=== PATIENT | female | born 1990 | race Caucasian/White ===

== ENCOUNTER 2016-11-24 16:30 | Emergency (ER) | payer OTHER ==
[~2016-11-24] VITALS: Ht 167.6 cm; Wt 95.7 kg
[~2016-11-24 16:30] MED LIST: Z.0.NO CURRENT MEDS
[2016-11-24] MEDS ORDERED: PREN1TAB45 PO (17:16)
[2016-11-24 17:30] VITALS: BP 129/85; PULSE 87
[2016-11-24 17:42] LABS: HEMATOCRIT 35.6 % (35.0-46.0); MEAN CELL VOLUME 80.7 FL (80.0-100.0); MEAN CORPUSCULAR HEMOGLOBIN 27.2 PG (27.0-34.0); MEAN CORPUSCULAR HGB CONC 33.7 % (32.0-36.0); PLATELET COUNT 242 TH/MM3 (150-450); RED BLOOD COUNT 4.42 MIL/MM3 (4.00-5.30); REVIEW FLAG FINAL; WHITE BLOOD COUNT 12.7 TH/MM3 (4.0-11.0)
[2016-11-24 17:45] VITALS: BP 132/79; PULSE 88
[2016-11-24 17:57] LABS: ALT (GPT) 14 U/L (10-53); ANION GAP 9 MEQ/L (5-15); AST (GOT) 12 U/L (15-37); BICARBONATE 21.3 MEQ/L (21.0-32.0); BLOOD UREA NITROGEN 7 MG/DL (7-18); CHLORIDE 108 MEQ/L (98-107); GLOMERULAR FILTRATION RATE 129 ML/MIN (>89); POTASSIUM 3.7 MEQ/L (3.5-5.1); SODIUM (NA) 138 MEQ/L (136-145); URIC ACID 3.5 MG/DL (2.6-6.0)
--- NOTE | 2016-11-24 17:57 | PD ---
HPI Chief Complaint sent from OB office for elevated blood pressure, rule out rupture Date Seen: Nov 24, 2016 Time Seen: 17:40 Travel History International Travel<30 Days: No Contact w/Intl Traveler<30Days: No Known Affected Area: No History of Present Illness HPI Pt is a 26 y/o G1 with IUP at 38.3 wks who was sent from Dr. Gray's office for evaluation of elevated blood pressure and r/o rupture. Pt states blood pressure in office today was approximately 150/90. She reports h/o borderline high blood pressure in the past but not diagnosed with hypertension or started on medication. Pt denies headache, vision change (except during hot shower), RUQ pain. She does report swelling of feet and also notes some finger swelling when she wakes in the morning. She reports some mild cramping, no RUC. denies vag bleeding. +FM She also had some fluid leakage after cervical exam in the office, and Dr. Gray requested amnisure (result negative). Weeks Gestation: 38 Para: 0 : 1 History Past Medical History Medical History: Denies Significant Hx Obstetric History Obstetric History G1 Past Surgical History Narrative Surgical appendectomy, tonsillectomy, surgery on finger Family History Family History: Negative Social History Alcohol Use: No Tobacco Use: No Substance Abuse: No Allergies-Medications (Allergen,Severity, Reaction): Coded Allergies: No Known Allergies (Unverified , 11/19/12) Home Meds Reported Medications Vit W/ Iron Carbonyl- (Pnv Tabs 29-1 29-1 mg) 29 Mg Iron-1 Mg Tab, 1 TAB PO DAILY 11/24/16 Discontinued Reported Medications Miscellaneous (No Current Meds) Misc 11/19/12 Review of Systems Eyes: No: Diploplia, Blurred Vision, Visual changes, Pain, Photophobia, Other HENT: No: Headaches, Vertigo, Dental Difficulties, Lightheadedness, Other Cardiovascular: No: Irregular Rhythm, Chest Pain or Discomfort, Palpitations, Tachycardia, Syncope, Varicosities, Edema, Cyanosis, Other Respiratory: No: Cough, Short of Breath, Wheezing, Other Gastrointestinal: No: Nausea, Vomiting, Diarrhea, Abdominal Pain, Hematemesis, Hematochezia, Constipation, Changes in Bowel Habits, Indigestion, Loss of Appetite, Other Genitourinary: No: Urgency, Frequency, Dysuria, Nocturia, Hematuria, Decreased Urinary Output, Oliguria, Hesitancy, Dribbling, Incontinence, Pelvic Pain, Dyspareunia, Discharge, Menorrhagia, Vaginal Bleeding, Other Musculoskeletal: Edema Skin: No Rash, No Itching, No Dryness, No Lumps, No Change in Pigmentation, No Change in Nails, No Alopecia, No Lesions, No Breast Lumps, No Breast Tenderness , No Breast Swelling, No Other Neurologic: No: Weakness, Dizziness, Syncope, Focal Abnormalities, Coordination Problem, Headache, Slurred Speech, Seizures, Other Psychiatric: No: Anxiety, Depression, Suicidal Ideations, Disorder of Thought, Mood Disorder, Substance Abuse, Homicidal Ideation, Other Endocrine: No: Heat Intolerance, Cold Intolerance, Polydipsia, Polyuria, Other Hematologic/Lymphatic: No Easy Bruising, No Lymph Node Enlargement, No Other Physical Exam 152/96, 140/87, 129/77, 129/85, 132/79, 129/74, 130/82, 130/78 Narrative GENERAL: Well-nourished, well-developed patient. SKIN: Warm and dry. HEAD: Normocephalic and atraumatic. EYES: No scleral icterus. No injection or drainage. ENT: No nasal drainage noted. Mucous membranes pink. Airway patent. NECK: Supple, trachea midline. No JVD. CARDIOVASCULAR: Regular rate and rhythm without murmurs, gallops, or rubs. RESPIRATORY: Breath sounds equal bilaterally. No accessory muscle use. ABDOMEN/GI: Abdomen soft, non-tender, bowel sounds present, no rebound, no guarding Gravid GENITOURINARY: Uterine Contractions: [irregular] FHT's: Category: 1 Baseline: 150 Reactive: yes Variability: mod Decels: no EXTREMITIES: 1-2+ pedal edema. BACK: Nontender without obvious deformity. No CVA tenderness. NEUROLOGICAL: Awake and alert. . Five out of 5 muscle strength in all muscle groups. Normal speech. Brisk patellar and biceps reflexes bilaterally; no ankle clonus Data Data Orders Orders Vital Signs (Adult) .ON ADMISSION (11/24/16 17:20) ^ Labor Status (11/24/16 17:20) Urinalysis - C+S If Indicated (11/24/16 17:20) ^ Non Stress Test (11/24/16 17:20) Cbc No Diff, Includes Plts (11/24/16 17:20) Comprehensive Metabolic Panel (11/24/16 17:20) Uric Acid (11/24/16 17:20) Us Ob Bpp Wo Nst (11/24/16 17:20) Labs Laboratory Tests Test 11/24/16 16:57 White Blood Count 12.7 TH/MM3 Red Blood Count 4.42 MIL/MM3 Hemoglobin 12.0 GM/DL Hematocrit 35.6 % Mean Corpuscular Volume 80.7 FL Mean Corpuscular Hemoglobin 27.2 PG Mean Corpuscular Hemoglobin Concent 33.7 % Red Cell Distribution Width 13.0 % Platelet Count 242 TH/MM3 Mean Platelet Volume 9.0 FL Urine Color LIGHT-YELLOW Urine Turbidity HAZY Urine pH 5.5 Urine Specific [place] 1.003 Urine Protein NEG mg/dL Urine Glucose (UA) NEG mg/dL Urine Ketones NEG mg/dL Urine Occult Blood NEG Urine Nitrite NEG Urine Bilirubin NEG Urine Urobilinogen LESS THAN 2.0 MG/DL Urine Leukocyte Esterase SMALL Urine RBC 1 /hpf Urine WBC 1 /hpf Urine Squamous Epithelial Cells 1 /hpf Urine Bacteria OCC /hpf Microscopic Urinalysis Comment CULT NOT INDICATED Blood Urea Nitrogen 7 MG/DL Creatinine 0.56 MG/DL Random Glucose 83 MG/DL Total Protein 6.6 GM/DL Albumin 2.6 GM/DL Calcium Level 8.4 MG/DL Uric Acid 3.5 MG/DL Alkaline Phosphatase 139 U/L Aspartate Amino Transf (AST/SGOT) 12 U/L Alanine Aminotransferase (ALT/SGPT) 14 U/L Total Bilirubin 0.3 MG/DL Sodium Level 138 MEQ/L Potassium Level 3.7 MEQ/L Chloride Level 108 MEQ/L Carbon Dioxide Level 21.3 MEQ/L Anion Gap 9 MEQ/L Estimat Glomerular Filtration Rate 129 ML/MIN Laboratory Tests Test 11/24/16 16:57 White Blood Count 12.7 Red Blood Count 4.42 Hemoglobin 12.0 Hematocrit 35.6 Mean Corpuscular Volume 80.7 Mean Corpuscular Hemoglobin 27.2 Mean Corpuscular Hemoglobin Concent 33.7 Red Cell Distribution Width 13.0 Platelet Count 242 Mean Platelet Volume 9.0 MDM Medical Record Reviewed: Yes Narrative Course / MDM 26 y/o G1 with IUP at 38.3 wks 1. elevated blood pressure --check serial bps (initial bp elevated, then normalized) --[facility] labs (wnl) --BPP ordered (1010 BPP, JAVY 20) --cat 1 tracing 2. r/o SROM --amnisure neg spoke with Dr. Gray and relayed lab info, vital signs, bpp results. Dr. Gray recommends that patient f/u in office at 1:30 on Monday. s/sx preeclampsia and labor reviewed with patient before discharge. kick counts discussed all questions answered. Plan d/c home f/u with Dr. Gray Monday at 1:30 Diagnosis Diagnosis: Primary Impression: Gestational [-induced] hypertension without significant proteinuria, third trimester Additional Impression: 38 weeks gestation of Disposition: DISCHARGE HOME Condition: Stable Patient Instructions: General Instructions, Early Labor Signs (ED), Preeclampsia (ED), Movement (ED) Fito Broderick MD Nov 24, 2016 17:57
[2016-11-24 17:59] LABS: ALKALINE PHOSPHATASE 139 U/L (45-117); TOTAL BILIRUBIN ADULT 0.3 MG/DL (0.2-1.0)
[2016-11-24 18:04] VITALS: BP 129/74; PULSE 88
[2016-11-24 18:12] LABS: BACTERIA, URINE OCC /hpf; BLOOD, URINE NEG (NEG); COMMENT (UR) CULT NOT INDICATED; CULTURE IF INDICATED CULT NOT INDICATED; GLUCOSE,URINE NEG (NEG); KETONE, URINE NEG (NEG); NITRITE,URINE NEG (NEG); PH, URINE 5.5 (5.0-8.5); SQUAMOUS EPITHELIAL CELL URINE 1 /hpf (0-5); URINE COLOR LIGHT-YELLOW (YELLW/STRAW)
[2016-11-24 18:30] VITALS: BP 130/78; PULSE 84
== END 2016-11-24 19:08 | disposition home or self-care (01) ==
LOC: HOBED 16:30
DX: O13.3 Gestational [pregnancy-induced] hypertension without significant proteinuria, third trimester (principal); Z3A.38 38 weeks gestation of pregnancy
CPT/HCPCS: 36415; 59025; 76816; 76819; 80053; 81001; 84112; 84550; 85027

== ENCOUNTER 2016-11-29 17:45 | Inpatient (IN) | payer OTHER ==
[~2016-11-29] VITALS: Ht 167.6 cm; Wt 92.0 kg
[~2016-11-29 17:45] MED LIST changes: +PREN1TAB45 PO; -Z.0.NO CURRENT MEDS
[2016-11-29 18:23] VITALS: BP 139/82; PULSE 91; RESP 18; TEMP 98.4
[2016-11-29 18:42] LABS: BLOOD, URINE NEG (NEG); COMMENT (UR) CULT NOT INDICATED; CULTURE IF INDICATED CULT NOT INDICATED; GLUCOSE,URINE NEG (NEG); KETONE, URINE NEG (NEG); MUCUS URINE FEW /lpf (OCC); NITRITE,URINE NEG (NEG); PH, URINE 5.5 (5.0-8.5); SQUAMOUS EPITHELIAL CELL URINE 7 /hpf (0-5); URINE COLOR YELLOW (YELLW/STRAW)
[2016-11-29 18:44] LABS: AUTOMATED NEUTROPHIL # 7.7 TH/MM3 (1.8-7.7); BASOPHIL % 0.4 % (0.0-2.0); EOSINOPHIL # 0.1 TH/MM3 (0-0.4); EOSINOPHIL % 1.1 % (0.0-4.0); HEMATOCRIT 35.5 % (35.0-46.0); HEMO FLAGS DIFF FINAL; LYMPH % 21.8 % (9.0-44.0); LYMPHOCYTE # 2.4 TH/MM3 (1.0-4.8); MEAN CELL VOLUME 79.9 FL (80.0-100.0); MEAN CORPUSCULAR HEMOGLOBIN 26.9 PG (27.0-34.0); MEAN CORPUSCULAR HGB CONC 33.7 % (32.0-36.0); MONO % 6.8 % (0.0-8.0); NEUT % 69.9 % (16.0-70.0); PLATELET COUNT 246 TH/MM3 (150-450); RED BLOOD COUNT 4.44 MIL/MM3 (4.00-5.30); RED CELL DISTRIBUTION WIDTH 13.6 % (11.6-17.2)
[2016-11-29] MEDS ORDERED: CITRIC ACID-SODIUM CITRATE LIQ 30 ML UDC PO SCH (18:45)
[2016-11-29] MEDS ORDERED: MINERAL OIL 10 ML VIAL TOPICAL PRN (18:45)
[2016-11-29] MEDS ORDERED: ONDANSETRON HCL 4 MG/2 ML VIAL IV PUSH PRN (18:45)
[2016-11-29] MEDS ORDERED: ZOLPIDEM TARTRATE 5 MG TAB PO PRN (18:45)
[2016-11-29] MEDS ORDERED: LIDOCAINE HCL 1% 50 ML VIAL INFIL PRN (18:45)
[2016-11-29] MEDS ORDERED: NS 500 ML BOLUS IV PRN (18:45)
[2016-11-29] MEDS ORDERED: DINOPROSTONE 10 MG INSERT - REMOVE AT 0600 VAGINAL ONE (18:45)
[2016-11-29] MEDS ORDERED: NS 1000 ML IV PRN (18:45)
[2016-11-29] MEDS ORDERED: LACTATED RINGER'S 1000 ML BOLUS IV PRN (18:45)
[2016-11-29] MEDS ORDERED: OXYTOCIN 30 UNITS 500ML PREMIX IV ONE (18:45)
[2016-11-29] MEDS ORDERED: LIDOCAINE HCL 1% 50 ML VIAL I-DERMAL PRN (18:45)
[2016-11-29] MEDS: LACTATED RINGER'S 1000 ML IV SCH (18:54)
[2016-11-29 19:25] VITALS: RESP 18; TEMP 98
[2016-11-29 19:30] VITALS: BP 133/91; PULSE 86
[2016-11-29] MEDS ORDERED: CALCIUM CARBONATE 500 MG CHEWABLE TAB PO PRN (20:00)
[2016-11-29 20:23] LABS: ANION GAP 9 MEQ/L (5-15); AST (GOT) 19 U/L (15-37); BICARBONATE 21.1 MEQ/L (21.0-32.0); BLOOD UREA NITROGEN 9 MG/DL (7-18); CHLORIDE 108 MEQ/L (98-107); GLOMERULAR FILTRATION RATE 115 ML/MIN (>89); POTASSIUM 3.7 MEQ/L (3.5-5.1); SODIUM (NA) 138 MEQ/L (136-145); URIC ACID 4.2 MG/DL (2.6-6.0)
[2016-11-29 20:24] LABS: ALT (GPT) 20 U/L (10-53)
[2016-11-29 20:27] LABS: ALKALINE PHOSPHATASE 147 U/L (45-117); TOTAL BILIRUBIN ADULT 0.3 MG/DL (0.2-1.0)
[2016-11-29 23:18] VITALS: BP 141/85; PULSE 71
[2016-11-29 23:19] VITALS: TEMP 97.6
[2016-11-29] MEDS: FAMOTIDINE 20 MG/2 ML VIAL IV SCH (23:35)
[2016-11-30] VITALS (123 sets, daily range): BP systolic 113–146; BP diastolic 62–87; PULSE 61–101; RESP 18–24; TEMP 97.6–99.5; O2SAT 93–100
[2016-11-30] MEDS: LACTATED RINGER'S 1000 ML IV SCH ×2 (02:45→15:46)
[2016-11-30] MEDS ORDERED: OXYTOCIN 30 UNITS-500ML PREMIX 500 ML ONE (06:44)
[2016-11-30] MEDS ORDERED: OXYTOCIN 30 UNITS/NS 500ML PREMIX IV SCH (08:00)
[2016-11-30] MEDS: FAMOTIDINE 20 MG/2 ML VIAL IV SCH ×2 (08:00→22:00)
--- NOTE | 2016-11-30 09:33 | PD.LABORPN ---
Subjective Subjective pt comfortable, denies fortune, ruq pain and visual changes Objective Vital Signs Vital Signs Date Time Temp Pulse Resp B/P (MAP) Pulse Ox O2 Delivery O2 Flow Rate FiO2 11/30/16 08:56 61 125/80 (95) 11/30/16 08:54 18 11/30/16 08:30 76 120/81 (94) 11/30/16 08:00 76 120/87 (98) 11/30/16 07:30 71 126/81 (96) 11/30/16 07:15 20 11/30/16 07:14 98.0 11/30/16 07:00 74 120/79 (93) 11/30/16 06:54 78 127/86 (100) 11/30/16 04:46 69 118/73 (88) 11/30/16 04:45 18 11/30/16 04:45 98.0 11/30/16 02:15 18 11/30/16 01:45 98.1 11/30/16 01:44 71 136/75 (95) 11/30/16 01:44 18 Objective Pelvic Exam: Cervix: [-] Dilatation: [-] Effacement: [-] Station: [-] Presentation: [-] Membranes: [intact or ruptured] Uterine Contractions: [-] FHT's: Category: [-] Baseline: [-] Reactive: [-] Variability: [-] Decels: [-] Weeks Gestation: 39 Gest Age Assessed Date: Nov 29, 2016 Gest Age Assessed Time: 17:30 Pt started active labor?: No Medical induction of labor?: Yes Medical induction start date: Nov 29, 2016 Medical induction start time: 17:30 Artificial rupture of membrane: Yes Artificial ROM date: Nov 30, 2016 Artifical ROM time: 09:00 Assessment/Plan Problem List: (1) Gestational hypertension ICD Codes: O13.9 - Gestational [-induced] hypertension without significant proteinuria, unspecified trimester Status: Acute Plan: s/p cervidil cont pit Yahaira Gray MD Nov 30, 2016 09:33
[2016-11-30] MEDS ORDERED: INFLUENZA VIRUS VACCINE (QUADRIVALENT) 0.5 ML SYR IM ONE (10:00)
[2016-11-30] MEDS ORDERED: fentaNYL 2MCG-BUPIV 0.125% INJ 100 ML ONE (13:28)
[2016-11-30] MEDS ORDERED: ePHEDrine/NS 25 MG/5 ML SYR IV PUSH PRN (15:30)
[2016-11-30] MEDS ORDERED: DO NOT ADMINISTER ANTICOAGULANTS PRN (15:30)
[2016-11-30] MEDS ORDERED: NO SYSTEM NARCOTICS PRN (15:30)
[2016-11-30] MEDS: fentaNYL 2MCG-BUPIV 0.125% 100 ML EPIDURAL SCH ×2 (15:48→22:10)
[2016-12-01] VITALS (26 sets, daily range): BP systolic 107–152; BP diastolic 56–96; PULSE 76–147; RESP 16–20; TEMP 97.4–98.6; O2SAT 97–100
[2016-12-01] MEDS ORDERED: LIDOCAINE HCL 1% 50 ML VIAL ONE (00:59)
[2016-12-01] MEDS ORDERED: SODIUM CHLORIDE 0.9% FLUSH 10 ML FLUSH IV FLUSH PRN (03:30)
[2016-12-01] MEDS ORDERED: ALUMINUM/MAGNESIUM/SIMETH 30 ML CUP PO PRN (03:30)
[2016-12-01] MEDS ORDERED: LIDOCAINE HCL 1% 20 ML VIAL INFIL ONE (03:30)
[2016-12-01] MEDS ORDERED: oxyCODONE/ACETAMINOPHEN 5 MG/325 MG TAB PO PRN ×2 (03:30)
[2016-12-01] MEDS ORDERED: ACETAMINOPHEN 325 MG TAB PO PRN (03:30)
[2016-12-01] MEDS ORDERED: BENZOCAINE 20% TOPICAL SPRAY 60 ML CAN TOPICAL PRN (03:30)
[2016-12-01] MEDS ORDERED: ONDANSETRON ODT 4 MG TAB PO PRN (03:30)
[2016-12-01] MEDS ORDERED: DOCUSATE SODIUM 50 MG/SENNA 8.6 MG TAB PO PRN (03:30)
[2016-12-01] MEDS ORDERED: ZOLPIDEM TARTRATE 5 MG TAB PO PRN (03:30)
[2016-12-01] MEDS ORDERED: OXYTOCIN 30 UNITS-500ML PREMIX 500 ML IV ONE (03:30)
[2016-12-01] MEDS ORDERED: OXYTOCIN 30 UNITS-500ML PREMIX 500 ML IV SCH (03:30)
--- NOTE | 2016-12-01 03:31 | PD.OB.DELI ---
Weeks gestation: 39 Gest age assessed date: Nov 29, 2016 Gest age assessed time: 17:30 Pt started active labor?: No Medical induction of labor?: Yes Medical induction start date: Nov 29, 2016 Medical induction start time: 17:30 Artificial rupture of membrane: Yes Artificial ROM date: Nov 30, 2016 Artifical ROM time: 09:00 Anesthesia: Epidural, Lidocaine local to perineum Episiotomy: None Vaginal Delivery: Normal Presentation: Occiput anterior Nuchal Cord: None Delayed cord clamping (45 sec): Yes Shoulder Dystocia: Suprapubic pressure given Infant: Female, Single Delivery date: Dec 01, 2016 Delivery time: 02:55 One Minute : 8 Five Minute : 9 Weight: 7-9 Placenta: Spontaneous delivery, Intact, 3 vessel cord Laceration: Perineal laceration, 2 deg Repair: Chromic running Estimated blood loss: 300 ml Yahaira Gray MD Dec 01, 2016 03:31
[2016-12-01] MEDS: FAMOTIDINE 20 MG/2 ML VIAL IV SCH (08:00)
[2016-12-01] MEDS: SODIUM CHLORIDE 0.9% FLUSH 10 ML FLUSH IV FLUSH SCH (09:00)
[2016-12-01] MEDS: LACTATED RINGER'S 1000 ML IV SCH ×2 (10:45→18:29)
[2016-12-01] MEDS: IBUPROFEN 600 MG TAB PO PRN ×2 (11:12→17:34)
[2016-12-01] MEDS: WITCH HAZEL 50%/GLYCERIN 12.5% 40 PAD JAR TOPICAL PRN (12:10)
[2016-12-01] MEDS ORDERED: MEASLES, MUMPS, RUBELLA VACCINE 0.5 ML VIAL SQ ONE (16:00)
[2016-12-01] MEDS ORDERED: DIPHTH/TETANUS/ACEL PERTUSSIS (BOOSTER) 0.5 ML VIAL/PFS IM ONE (16:00)
[2016-12-02] MEDS: FAMOTIDINE 20 MG/2 ML VIAL IV SCH (08:00)
[2016-12-02 08:25] VITALS: BP 131/84; PULSE 80; RESP 18; TEMP 98.1
[2016-12-02] MEDS: IBUPROFEN 600 MG TAB PO PRN (08:37)
[2016-12-02] MEDS: SODIUM CHLORIDE 0.9% FLUSH 10 ML FLUSH IV FLUSH SCH (09:00)
[2016-12-02] MEDS: LACTATED RINGER'S 1000 ML IV SCH (09:00)
[2016-12-02] MEDS ORDERED: IBUP-232 PO (09:17)
--- NOTE | 2016-12-02 09:18 | HHI.DCPOC ---
Discharge Care Plan Diagnosis: (1) Gestational hypertension Your Health Problems Are: Vaginal delivery Report Symptoms to Your Doctor -Temperature above 100.5 degrees -Redness, of incision or excessive or foul smelling drainage -Unusual pain or calf pain -Increased vaginal bleeding -Painful or difficulty urinating -Feelings of extreme sadness or anxiety after 2 weeks Goals to Promote Your Health * To prevent worsening of your condition and complications * To maintain your health at the optimal level Directions to Meet Your Goals Take your medications as prescribed Follow your dietary instruction Follow activity as directed Ensure plenty of rest for recovery Drink fluids for hydration Keep your appointments as scheduled Take your immunizations and boosters as scheduled If your symptoms worsen call your PCP, if no PCP go to Urgent Care Center or Emergency Room Smoking is Dangerous to Your Health. Avoid second hand smoke Call the 24-hour crisis hotline for domestic abuse at Yahaira Gray MD Dec 02, 2016 09:18
[2016-12-02 12:00] VITALS: BP 125/83
[2016-12-02] MEDS: WITCH HAZEL 50%/GLYCERIN 12.5% 40 PAD JAR TOPICAL PRN (15:05)
== END 2016-12-02 15:30 | disposition home or self-care (01) | DRG 775 ==
LOC: H2EB 17:45 → H1EA 12-01 05:16
PROVIDERS: ADMIT Obstetrics & Gynecology; ATTEND Obstetrics & Gynecology
PROC: 3E0P3VZ Introduction of Hormone into Female Reproductive, Percutaneous Approach (ICD-10-PCS; 2016-11-29)
PROC: 10907ZC Drainage of Amniotic Fluid, Therapeutic from Products of Conception, Via Natural or Artificial Opening (ICD-10-PCS; 2016-11-30)
PROC: 00HU33Z Insertion of Infusion Device into Spinal Canal, Percutaneous Approach (ICD-10-PCS; 2016-11-30)
PROC: 3E0R3BZ Introduction of Anesthetic Agent into Spinal Canal, Percutaneous Approach (ICD-10-PCS; 2016-11-30)
PROC: 10E0XZZ Delivery of Products of Conception, External Approach (ICD-10-PCS; principal; 2016-12-01)
PROC: 0KQM0ZZ Repair Perineum Muscle, Open Approach (ICD-10-PCS; 2016-12-01)
DX: O13.4 Gestational [pregnancy-induced] hypertension without significant proteinuria, complicating childbirth (principal); O66.0 Obstructed labor due to shoulder dystocia; O70.1 Second degree perineal laceration during delivery; Z37.0 Single live birth; Z3A.39 39 weeks gestation of pregnancy; Z23 Encounter for immunization
CPT/HCPCS: 59025; 80053; 80307; 81001; 84550; 85025; 86900; 86901; 90686; 90707; 90715; J2590; J3010; J7120; Q2038